=== PATIENT | female | born 1985 | race Caucasian/White ===

== ENCOUNTER 2018-04-05 19:40 | Emergency (ER) | payer OTHER ==
[~2018-04-05] VITALS: Ht 170.2 cm; Wt 104.3 kg
[2018-04-05] MEDS ORDERED: ULTRAM 50MG TAB50 MG PO (20:37)
== END 2018-04-05 21:29 | disposition home or self-care (01) ==
LOC: ER 19:40
DX: S82.62XA Displaced fracture of lateral malleolus of left fibula, initial encounter for closed fracture (principal); Z88.2 Allergy status to sulfonamides; Z90.10 Acquired absence of unspecified breast and nipple; Z90.89 Acquired absence of other organs; W10.9XXA Fall (on) (from) unspecified stairs and steps, initial encounter; Y92.89 Other specified places as the place of occurrence of the external cause; Y93.89 Activity, other specified; Y99.8 Other external cause status